=== PATIENT | male | born 1965 | race Caucasian/White ===

== ENCOUNTER 2017-10-08 00:54 | Observation (INO) | payer BC ==
[~2017-10-08] VITALS: Ht 175.3 cm; Wt 140.2 kg
[~2017-10-08 00:54] MED LIST: Ecotrin PO; LOPRESSOR50 MG PO; Lipitor PO; Plavix PO; VICODIN,LORT1 TABLET PO; Zestril,Prinivil PO
[2017-10-08 01:13] LABS: HEMATOCRIT 44.2 % (38.0-50.0); HEMOGLOBIN 15.2 G/DL (12.5-16.6); MCH 33.1 PG (29.0-34.0); MCHC 34.4 G/DL (30.0-36.0); MCV 96.3 FL (86-99); PLATELET COUNT 242 K/uL (156-360); RBC DIS.WIDTH-SD 46.1 % (39-53); RED BLOOD COUNT 4.59 M/uL (4.00-5.50); WHITE BLOOD COUNT 13.1 K/uL (4.1-10.2)
[2017-10-08 01:21] LABS: CHLORIDE 104 mEq/L (99-109); POTASSIUM 4.3 mEq/L (3.7-5.4); SODIUM 141 mEq/L (136-147)
[2017-10-08 01:23] LABS: GLUCOSE 116 mg/dL (70-99)
[2017-10-08 01:27] LABS: GFR ESTIMATE (CALCULATED) > 59 mL/min/ (58.99-99999)
[2017-10-08 01:28] LABS: UREA NITROGEN (BUN) 17 mg/dL (9-23)
[2017-10-08 01:34] LABS: TROP-I INTERPRETATION NEGATIVE; TROPONIN-I 0.02 ng/mL (0.0-0.30)
[2017-10-08 03:34] LABS: D-DIMER ELISA < 150.00 ng/mLDDU (<230)
[2017-10-08 04:02] VITALS: BP 184/90
[2017-10-08 06:50] LABS: HEMATOCRIT 42.5 % (38.0-50.0); HEMOGLOBIN 14.1 G/DL (12.5-16.6); MCH 32.5 PG (29.0-34.0); MCHC 33.2 G/DL (30.0-36.0); MCV 97.9 FL (86-99); PLATELET COUNT 226 K/uL (156-360); RBC DIS.WIDTH-SD 46.8 % (39-53); RED BLOOD COUNT 4.34 M/uL (4.00-5.50); WHITE BLOOD COUNT 10.5 K/uL (4.1-10.2)
[2017-10-08 07:13] LABS: TROP-I INTERPRETATION NEGATIVE; TROPONIN-I < 0.01 ng/mL (0.0-0.30)
[2017-10-08 07:20] LABS: ALBUMIN 3.9 G/DL (3.2-4.8); ALKALINE PHOSPHATASE 58 IU/L (3-129); ALT (GPT) 98 IU/L (3-49); AST (GOT) 51 IU/L (2-34); CHLORIDE 102 MEQ/L (99-109); GFR ESTIMATE (CALCULATED) > 59 mL/min/ (58.99-99999); GLUCOSE 102 mg/dL (70-99); POTASSIUM 4.7 MEQ/L (3.7-5.4); SODIUM 138 MEQ/L (136-147); TOTAL BILIRUBIN 0.4 MG/DL (0.0-1.0); TOTAL PROTEIN 6.6 G/DL (6.4-8.3); UREA NITROGEN (BUN) 16 mg/dL (9-23)
[2017-10-08] MEDS ORDERED: COZAAR50 MG PO (09:01)
[2017-10-08] MEDS ORDERED: MEVACOR20 MG PO (09:03)
[2017-10-08] MEDS ORDERED: ZYLOPRIM100 MG PO (09:04)
[2017-10-08 09:50] VITALS: BP 138/75
[2017-10-08] MEDS ORDERED: ASPIRIN EC325 MG PO (12:00)
[2017-10-08 13:24] LABS: TROP-I INTERPRETATION NEGATIVE; TROPONIN-I < 0.01 ng/mL (0.0-0.30)
== END 2017-10-08 14:31 | disposition home or self-care (01) ==
LOC: EME 00:54 → EDOF 02:24 → ENRESERV 02:26 → 5WEST 03:54 → ENPENDDIS 14:06 → 5WEST 14:31
PROVIDERS: Internal Medicine
DX: R07.9 Chest pain, unspecified (principal); R00.2 Palpitations; I10 Essential (primary) hypertension; J44.9 Chronic obstructive pulmonary disease, unspecified; E78.5 Hyperlipidemia, unspecified; G47.33 Obstructive sleep apnea (adult) (pediatric); F17.200 Nicotine dependence, unspecified, uncomplicated; E66.01 Morbid (severe) obesity due to excess calories; Z68.42 Body mass index [BMI] 45.0-49.9, adult; Z87.442 Personal history of urinary calculi; Z79.82 Long term (current) use of aspirin
CPT/HCPCS: 71046; 80048; 80053; 84484; 85027; 85379; 93005; 94660; G0378

== ENCOUNTER 2017-11-27 09:49 | Day surgery (SDC) | payer BC ==
[~2017-11-27] VITALS: Ht 175.3 cm; Wt 141.0 kg
[~2017-11-27 09:49] MED LIST changes: +ASPIRIN EC325 MG PO; +COZAAR50 MG PO; +ISOSORBIDE MONO30 MG PO; +MEVACOR20 MG PO; +NICOTINE PATCH1 EAC2 TD; +NITROSTAT0.4 MG SL; +VENTOLIN HFA18 GM IH; +ZYLOPRIM100 MG PO
== END 2017-11-27 17:00 | disposition home or self-care (01) ==
LOC: CATH 09:49
DX: I25.10 Atherosclerotic heart disease of native coronary artery without angina pectoris (principal); I10 Essential (primary) hypertension; F17.210 Nicotine dependence, cigarettes, uncomplicated; E78.5 Hyperlipidemia, unspecified; E66.01 Morbid (severe) obesity due to excess calories; I25.2 Old myocardial infarction
CPT/HCPCS: 85347; C1750; C1769; C1887; J1644; J2250; J7040